=== PATIENT | female | born 1985 | race Caucasian/White ===

== ENCOUNTER → 2023-10-29 08:39 | Outpatient (CLI) | payer OTHER, SELFPAY ==
--- NOTE | ~2023-10-29 | MR_ITS ---
MRI of the right knee Clinical history: Pain Technique: Coronal proton density and proton density-weighted images, sagittal proton-density and T2 fat-sat images, and axial proton-density fat-saturated images were acquired. Findings: Patient is status post ACL reconstruction surgery. ACL graft is intact, with normal orienta tion and signal. Posterior cruciate ligament is intact. Medial collateral ligament and the lateral co llateral complex are intact. Popliteus tendon is intact. Medial and lateral menisci are intact, without evidence of tear. There is mild chondromalacia patella. Articular cartilage in the medial lateral compartments is well preserved. Bone marrow signals are unremarkable. Extensor mechanism is intact. No joint effusion or Marie's cyst. Impression: Mild chondromalacia patella. ACL reconstruction, with intact graft. Reviewed, dictated and finalized at [facility]. [employer]' COMPENSATION HEARINGS OFFICER Impression: Mild chondromalacia patella. ACL reconstruction, with intact graft.
== END ==
PROVIDERS: PCP Orthopaedic Surgery; Visit Provider Orthopaedic Surgery
DX: M22.41 Chondromalacia patellae, right knee (principal); G89.29 Other chronic pain; Z98.890 Other specified postprocedural states
CPT/HCPCS: 73721